=== PATIENT | female | born 1955 | race Caucasian/White ===

== ENCOUNTER → 2018-06-19 | Outpatient (CLI) | payer BC ==
[~2018-06-19] MED LIST: TRILIPIX 135MG PO; ZOCOR 40MG40 MG PO
== END ==
LOC: MC.RAD 13:54
DX: Z12.31 Encounter for screening mammogram for malignant neoplasm of breast (principal)

== ENCOUNTER → 2018-07-31 | Outpatient (CLI) | payer BC ==
[2018-07-31 18:35] LABS: HIV 1/2 Antibodies Non-Reactive; HIV-1p24 Antigen Non-Reactive
== END ==
LOC: COL.LAB 16:48
PROVIDERS: Orthopaedic Surgery
DX: Z01.812 Encounter for preprocedural laboratory examination (principal); M17.11 Unilateral primary osteoarthritis, right knee

== ENCOUNTER → 2018-10-09 | Outpatient (CLI) | payer BC ==
[2018-10-09 18:41] LABS: HIV 1/2 Antibodies Non-Reactive; HIV-1p24 Antigen Non-Reactive
== END ==
LOC: COL.LAB 17:01
PROVIDERS: Pediatrics
DX: Z01.812 Encounter for preprocedural laboratory examination (principal)

== ENCOUNTER 2018-10-24 09:18 | Inpatient (IN) | payer BC ==
[~2018-10-24] VITALS: Ht 170.2 cm; Wt 78.0 kg
[2018-10-30] VITALS (11 sets, daily range): BP systolic 102–130; BP diastolic 42–68; PULSE 55–89; TEMP 97.7–98.5
[2018-10-30] MEDS ORDERED: SYNTHROID0.05 MG/TA PO (07:38)
--- NOTE | 2018-10-30 11:55 | NUR ---
returned to room per bed from PACU, awake and alert but sleepy, IV infusing and placed on pump at 125ml/hr, O2 on at 3L/NC, rob cath patent draining clear yellow urine, SCDS and REID hose on bilaterally, aquacel dressing to left knee CD&I, rolled to side and no wrinkles in linens or wires under patinet, has sensation down to knees and unable to move lower extremities, full assessment completed, see interventions for further info,
--- NOTE | 2018-10-30 12:15 | NUR ---
taking sips of water and tolerates well, at bedside
--- NOTE | 2018-10-30 12:30 | NUR ---
provided pudding for her to eat, instructed on ordering regular food if tolerates pudding, verbalizes understanding
--- NOTE | 2018-10-30 13:15 | NUR ---
has sensation to her feet and is able to do ankle pumps
--- NOTE | 2018-10-30 14:24 | NUR ---
c/o pain and requesting pain pill, medicated with hydrocodone 7.5mg 2 tabs, had something to eat and tolerates well, visiting with a friend
--- NOTE | 2018-10-30 15:00 | NUR ---
remains resting in bed and denies needs
--- NOTE | 2018-10-30 16:54 | NUR ---
PARESH met with the patient and patient's , Vignesh, to discuss discharge plan. The patient lives in [place] with her . She reports independence with ADLs and has a walker. The patient's PCP is Dr. Sam Saha and he receives his medications at the [facility]. She reports no difficulties obtaining her meds. The patient plans to return home with her upon discharge and receive outpatient therapy at [facility] on 11/04. No additional needs at this time.
--- NOTE | 2018-10-30 17:00 | NUR ---
in bed and appears to be sleeping
--- NOTE | 2018-10-30 18:17 | NUR ---
awake now and resting in bed visiting with family, c/o pain to left knee and medicated with roxicodone 10mg, will order supper soon
--- NOTE | 2018-10-30 18:51 | NUR ---
resting in bed visiting with , bedside shift report given to VALENTIN Burleson
--- NOTE | 2018-10-30 20:00 | NUR ---
Assessment completed. Patient is A&O x 4. VSS, currently on 3 liters of supplemental O2 via nasal cannula per orders. Has home CPAP at bedside that she plans to wear tonight. Pain controlled with alternating [place]/Sandra. Aquacell dressing to left knee is CDI with cyrocuff maintained to knee. Pedal pulses intact. BLE andrews hose/scds on. Weinstein catheter to DD with yellow clear urine draining. Tolerating diet with no c/o nausea. IVF infusing with intermittent antibiotic. Ambulated 300 feet with standby assist in the hallway with walker and gait belt, gait noted to be steady. Denies any concerns or needs at this time, call light is within reach.
[2018-10-31 00:22] VITALS: BP 90/47; PULSE 71; TEMP 98.6
--- NOTE | 2018-10-31 03:00 | NUR ---
Patient has been resting well with home CPAP on. Reports pain being controlled with current oral pain medications. Refilled cryocuff at this time and readjusted patients RLE. Aquacell dressing to left knee remains CDI. Denies any concerns or needs.
[2018-10-31 05:09] VITALS: BP 113/48; PULSE 71; TEMP 98.6
--- NOTE | 2018-10-31 06:13 | NUR ---
Patient has rested well through the night. VSS, home CPAP on. Pain has been controlled with alternating [place]/Sandra. Aquacell dressing to left knee remain CDI with cryocuff maintained to knee. Denies any concerns or needs, call light remains within reach.
[2018-10-31 06:44] LABS: HEMOGLOBIN 11.5 g/dl (12.5-16.0)
--- NOTE | 2018-10-31 06:45 | NUR ---
awake resting in bed, bedside shift report received from VALENTIN Burleson
[2018-10-31 06:48] LABS: HEMATOCRIT 36.5 % (37.0-47.0)
--- NOTE | 2018-10-31 07:13 | NUR ---
full assessment completed, see interventions for further info, c/o pain and medicated with hydrocodone 7.5mg 2 tabs
[2018-10-31 07:15] VITALS: BP 108/49; PULSE 72; TEMP 98.2
[2018-10-31] MEDS ORDERED: ASPI325T6 PO (07:22)
[2018-10-31] MEDS ORDERED: ROXICODONE 55 MG/TAB PO (07:22)
[2018-10-31] MEDS ORDERED: NORCO 325 MG-7.1 TAB PO (07:22)
[2018-10-31] MEDS ORDERED: TYLENOL 500MG500 MG PO (07:23)
[2018-10-31] MEDS ORDERED: ZANTAC 150MG T150 MG PO (07:23)
--- NOTE | 2018-10-31 10:30 | NUR ---
physical therapy in to work with patient, ambulated out in [place] and then back to room and into recliner
--- NOTE | 2018-10-31 11:00 | NUR ---
resting in recliner, c/o pain after therapy and medicated with roxicodone 10mg
[2018-10-31 11:56] VITALS: BP 134/61; PULSE 77; TEMP 97.7
--- NOTE | 2018-10-31 11:56 | NUR ---
resting in chair, rob catheter discontinued, rolerated well
--- NOTE | 2018-10-31 13:10 | NUR ---
assisted up to bathroom and voided qs, then back to chair to wait for therapy
--- NOTE | 2018-10-31 13:15 | NUR ---
ambulated out to [facility] with physical therapy for group exercises
--- NOTE | 2018-10-31 14:19 | NUR ---
ambulated back to room after therapy and resting in bed, denies needs at this time
--- NOTE | 2018-10-31 14:47 | NUR ---
Initial visit; Patient thanked [employer] Manager for looking in on her and offering God's blessings.
[2018-10-31 15:45] VITALS: BP 116/42; PULSE 81; TEMP 98.6
--- NOTE | 2018-10-31 15:45 | NUR ---
resting in bed, c/o pain to left knee, medicated with hydrocodone 7.5mg 2 tabs
--- NOTE | 2018-10-31 18:00 | NUR ---
appears to be sleeping, in bed with lights off eyes closed, resp quiet and easy
--- NOTE | 2018-10-31 18:52 | NUR ---
bedside shift report given to VALENTIN Blanco
[2018-10-31 20:00] VITALS: BP 131/66; PULSE 90; TEMP 99.1
--- NOTE | 2018-10-31 20:00 | NUR ---
Patient up in chair eating supper. Alert and oriented x 3. Spouse at bedside. Shift assessment complete. States relief of pain to left knee. Aquacell with scant drainage. Gerald hose and SCDs to BLE. Patient ambulated in [place] >200feet with walker and gait belt. Denies further needs at this time.
[2018-11-01 05:10] VITALS: BP 135/64; PULSE 92; TEMP 98.1
--- NOTE | 2018-11-01 06:24 | NUR ---
Patient has rested well through the night. Minimal needs. Has requested pain medications through the night, given per orders. Gerald hose and SCds maintained to bilateral lower extremities. Cryocuff maintained to left knee. Denies further needs at this time. Will report off to day shift.
[2018-11-01 07:17] VITALS: BP 144/62; PULSE 88; TEMP 97.9
--- NOTE | 2018-11-01 09:17 | NUR ---
PATIENT OUT TO [facility] FOR THERAPY AMBULATED 100+ FT WITH STEADY GAIT. PAIN WELL CONTROLLED WITH PO MEDS. PLAN ON DISCHARGE LATER TODAY TO HOME.
[2018-11-01 12:28] VITALS: BP 142/69; PULSE 83; TEMP 97.9
--- NOTE | 2018-11-01 15:23 | NUR ---
discharge instructions provided to pt and spouse, questions answered, pt taken to front via wheel chair. patient left property in POV
== END 2018-11-01 15:24 | disposition home or self-care (01) | DRG 470 ==
LOC: JCC 10-30 07:04
PROVIDERS: ADMIT Orthopaedic Surgery
PROC: 0SRD0J9 Replacement of Left Knee Joint with Synthetic Substitute, Cemented, Open Approach (ICD-10-PCS; principal; 2018-10-30 10:30)
DX: M17.2 Bilateral post-traumatic osteoarthritis of knee (principal); Z96.651 Presence of right artificial knee joint
CPT/HCPCS: A4314; A9284; C1713; C1776; J0690; J2250; J2704; J3010; J7120

== ENCOUNTER → 2019-08-14 | Outpatient (CLI) | payer BC ==
[~2019-08-14] MED LIST changes: +ASPI325T6 PO; +NORCO 325 MG-7.1 TAB PO; +ROXICODONE 55 MG/TAB PO; +SYNTHROID0.05 MG/TA PO; +TYLENOL 500MG500 MG PO; +ZANTAC 150MG T150 MG PO
== END ==
LOC: MC.RAD 10:45
DX: Z12.31 Encounter for screening mammogram for malignant neoplasm of breast (principal)

== ENCOUNTER → 2020-09-08 | Outpatient (CLI) | payer BC | LOC: MC.RAD 13:11 | DX: Z12.31 Encounter for screening mammogram for malignant neoplasm of breast (principal) ==

== ENCOUNTER → 2021-09-27 | Outpatient (CLI) | payer MEDICARE, OTHER | LOC: MC.RAD 09:57 | DX: Z12.31 Encounter for screening mammogram for malignant neoplasm of breast (principal) ==

== ENCOUNTER → 2023-10-19 | Outpatient (CLI) | payer MEDICARE | LOC: MC.RAD 12:47 | DX: Z12.31 Encounter for screening mammogram for malignant neoplasm of breast (principal) ==